=== PATIENT | female | born 2000 | race Caucasian/White ===

== ENCOUNTER 2021-03-13 00:42 | Outpatient (CLI) | payer MEDICAID, SELFPAY ==
--- NOTE | 2021-03-13 | DI.US_ITS ---
Exam(s) US OB 1ST TRIMESTER EXAM: US OB 1ST TRIMESTER CLINICAL HISTORY: ? SIZE AND DATES,N92.6 TECHNIQUE: Ultrasound performed using standard protocol. COMPARISON: No exams were available for comparison FINDINGS: Ob ultrasound was performed utilizing 1st trimester protocol. There is a single viable intrauterine gestation. [place]-rump length measurements are consistent with a gestational age 10 weeks 6 days and EDC of October 03, 2021. heart rate is 157 BPM. The trophoblastic tissue is unremarkable appearance. Ovaries are unremarkable as visualized. No free fluid in the cul-de-sac. IMPRESSION: DATA REPOSITORY:
== END 2021-03-13 01:02 ==
PROVIDERS: Visit Provider Family Medicine
DX: Z34.91 Encounter for supervision of normal pregnancy, unspecified, first trimester (principal); Z3A.10 10 weeks gestation of pregnancy
CPT/HCPCS: 76801

== ENCOUNTER 2021-06-16 00:32 | Outpatient (CLI) | payer MEDICAID, SELFPAY ==
--- NOTE | 2021-06-16 | DI.US_ITS ---
Exam(s) US OB 2-3 TRIMESTER EXAM: US OB 2-3 TRIMESTER CLINICAL HISTORY: SECOND TRIMESTER ,Z34.92. TECHNIQUE: Transabdominal obstetrical ultrasound was performed. COMPARISON: US US OB 1ST TRIMESTER from 03/13/2021 FINDINGS: There is a single viable intrauterine gestation with cardiac activity identified-140 bpm. Amniotic fluid: There is a normal amount of amniotic fluid. Placental location: The placenta is anterior grade 1,with no evidence of placenta previa.Distance fro m the tip of placenta to the internal cervical os is 9.5 cm ANATOMY: A 3 vessel umbilical cord is seen. A four-chamber cardiac view was obtained. Right and left ventricular outflow tracts were imaged. There are no obvious abnormalities of the spinal column evident. There is no obvious abnormal ity of the anterior abdominal wall. stomach and urinary bladder are identified and there is no evidence of hydronephrosis. No abnormalities of the upper lip region are identified. No evidence of choroid plexus cysts i n the brain. Dating parameters place this at approximately 25 weeks and 2 days gestational age. BPD measures 25 weeks and 2 days HC measures 25 weeks and 3 days AC measures 25 weeks and 3 days FL measures 25 weeks and 0 days Estimated weight is 791 gm-1 pound 12 ounces Fetus is at the 79th percentile on the Hadlock scale. IMPRESSION:: Single viable intrauterine gestation which is approximately 25 weeks and 2 days gestati onal age, implying an SOCORRO of September 27, 2021. There are no obvious anomalies evident on today's study. The placenta is anterior with no evidence of placenta previa. There is a normal amount of amniotic fluid. DATA REPOSITORY:
== END 2021-06-16 00:52 ==
PROVIDERS: PCP Family Medicine; Visit Provider Family Medicine
DX: Z34.92 Encounter for supervision of normal pregnancy, unspecified, second trimester (principal); Z3A.25 25 weeks gestation of pregnancy
CPT/HCPCS: 76805

== ENCOUNTER 2021-09-24 00:33 | Inpatient (IN) | payer MEDICAID, SELFPAY ==
[2021-09-24] VITALS (20 sets, daily range): BP systolic 104–133; BP diastolic 52–79; PULSE 86–113; RESP 17–22; TEMP 36.4–36.7; O2SAT 97–99
[2021-09-24 00:58] LABS: HCT 31.7 % (36.0-46.0); HGB 11.2 g/dL (11.2-15.7); MCHC 35.3 % (32.0-36.0); MCV 94 fL (80-95); MPV 10.7 fL (8.0-11.0); Platelet Count 170 10^3/uL (130-400); RBC 3.39 10^6/uL (3.93-5.22); RDW 12.2 % (11.7-14.6); WBC 15.14 10^3/uL (4.4-10.8)
[2021-09-24 03:04] LABS: Source Nasal/Nares
[2021-09-24 03:55] LABS: COVID-19 PCR Negative (Negative)
--- NOTE | 2021-09-24 05:21 | HPE_ITS ---
Date of service: 09/24/21 Time of Service: 04:30 Assessment and Plan Assessment and plan (1) : Status: Acute OB-HPI Labor/Delivery History of Present Illness Reason for Visit: Term labor Chief Complaint: Uterine Contractions. Comments: 38 09/05 - has been prodroming since 1 am 09/23 - latest cervical check 3 cm/30/- 2/vtx @ ~5 pm 09/23. No ROM, some mucousy show, good FM. No visual sx, garcia, abd pain. reating and taking fluids well. Good support from family/Mom History of Present Narrative: see pn flow sheet PFSH All Active Problems (Updated 09/24/21 @ 05:47 by Gino Argueta) (Acute) Medical History Anxiety Social History Smoking/Tobacco Use Status: Current-Occasional Tobacco Type: cigarettes Smoking risk assessment performed?: Yes Alcohol Intake: never Substance use type: does not use History History 2 1 Para 0 Hx # Term Pregnancies Multiple births Hx # Pregnancies Ectopic pregnancies AB induced Hx Number of Living Children AB spontaneous Meds Allergies and Home Medications Allergies Allergy/AdvReac Type Severity Reaction Status Date / Time Penicillins Allergy Unknown Unverified 09/24/21 01:18 Home Medications Medication Instructions Recorded Confirmed Type sertraline 50 mg tablet (Zoloft) 50 mg PO QDAY anxiety 09/24/21 09/24/21 History Exam Physical Exam Vital signs: Temp Pulse Resp BP Pulse Ox 36.4 C L 104 H 20 115/65 98 09/24/21 04:27 09/24/21 04:26 09/24/21 04:27 09/24/21 04:26 09/24/21 04:26 Narrative: post walk to she had nausea/vomiting spell and cervix checked - 9 cm/100/+1/VTX/Intact. AROM ~5 AM - scant ant lip remaining. Sig invol pushing and moving vtx quite well Detailed Labor and Delivery Exam Alvarez Score: Cervical Points Exam 0 1 2 3 Dilation Closed 1-2cm 3-4 cm 5-6cm Effacement 0-30% 40-50% 60-70% 80% Consistency Firm Medium Soft Station -3 -2 -1,0 +1,+2 Position Posterior Mid Anterior Comments: see above note interrupted by precip delivery - see del note Results Abnormal Lab Findings: Abnormal Labs 09/24/21 00:48 WBC 15.14 H RBC 3.39 L Hct 31.7 L Risk Assessment Risk for Shoulder Dystocia Delivery Plan @ 40 wks: with usual awareness of her low risk for SD Risk for Post- Hemorrhage At Risk?: No Risks Reviewed Risks Reviewed Upon Admission: Yes
[2021-09-24] MEDS: Oxytocin 10 UNITS/ML VIAL IM (05:33)
--- NOTE | 2021-09-24 05:41 | NUR.NOTE ---
Nursing Note:0525 Pt delivered vaginally. Bilateral labial tears, no repair. FFat U,
--- NOTE | 2021-09-24 05:42 | NUR.NOTE ---
Nursing Note:0525 Pt delivered vaginally using nitrous. No repair. Bilateral labial tears. Delayed cord cutting. PLacenta delivered with trailing membranes intact per MD. Pitocin 10 units IM given prior to delivery per MD.
--- NOTE | 2021-09-24 05:49 | W.OBDELIVERY ---
Date of service: 09/24/21 Time of Service: 04:49 OB Labor/ Delivery Information Baby A Delivery Note: Term presented in active labor. FHT cat 1 throughout. Excellent position changes, family support and Nitrous use allowed her to progress to complete. AROM ~5 AM - strong pushes in lithotomy. when shifted to squat with bar she crowned precipitously after a single push. OA. Transverse shoulders with only maternal effort - no maneuvers. Spont resp and to maternal abd. 8/9 for color. HR > 100 at . AF clear Scant labial skid matthews - no repair warranted. perineum and rectum examined and intact. Spont intact placenta with central cord insertion Firm fundus @ umb. Pit IM given. Nell tolerated delivery quite well and was bonding with cont skin to skin for >30 min post delivery Providers Doctor: Gino Argueta Nurse: Evelyn Staley Nurse: Ashley Donaldson Labor/Delivery Information Number of Babies in Womb: 1 Steroids Given: None Reason Steroids Not Administered: N/A Group Beta Strep: Negative Antibiotics Administered: No Medication in Delivery: Nitrous Shoulder Dystocia: No Stages of Labor Onset of Labor Date: 09/23/21 Onset of Labor Time: 21:30 Complete Dilatation Date: 09/24/21 Complete Dilatation Time: 04:55 Labor - Stage 1 Duration: 24 hours and 0 minutes ROM Baby A: 09/24/21 ROM Baby A: 04:58 Infant Delivery Date-Baby A: 09/24/21 Placenta Delivery Date-Baby A: 09/24/21 Placenta Delivery Time-Baby A: 05:34 Placenta Cultured: No Placenta Status: Delivered Baby A Infant Gender: Female Gestational Status: Early Term (37-38.6 wks) Gestational Age in Weeks/Days: 38 Weeks and 5 Days Score-1 Minute Interval(Baby A) Heart Rate-1 minute: 100 BPM or Greater Respiratory Effort- 1 minute: Spontaneous/Strong Cry Muscle Tone-1 minute: Active Movement Reflex Response-1 minute: Prompt Response Color-1 minute: Pallor or Cyanosis Total Score-1 minute: 8 Score-5 Minute Interval(Baby A) Heart Rate- 5 minute: 100 BPM or Greater Respiratory Effort-5 minute: Spontaneous/Strong Cry Muscle Tone-5 minute: Active Movement Reflex Response-5 minute: Prompt Response Color-5 minute: Bluish Hands or Feet Total Score- 5 minute: 9 Shoulder Dystocia Verify No Fundal Pressure Applied Fundal Pressure: No Pressure Applied Arm Under Sympisis Note: shoulders were transverse. No maneuvers, no dystocia
[2021-09-24] MEDS: Docusate Sodium 100 MG CAP PO (06:38)
[2021-09-24] MEDS: Ibuprofen 600 MG TAB PO ×3 (06:39→19:17)
[2021-09-24] MEDS: Acetaminophen 325 MG TAB 650 MG PO ×3 (06:40→19:17)
[2021-09-24] MEDS: Sertraline 50 MG TAB PO (09:13)
[2021-09-24] MEDS: Prenatal Multivitamin w/CA,FE TAB 1 TAB PO (09:13)
[2021-09-25 07:15] VITALS: BP 107/68; PULSE 92; RESP 20; TEMP 36.6
[2021-09-25 07:33] LABS: HCT 28.2 % (36.0-46.0); MCH 33.3 pg (27.0-33.0); MCHC 35.5 % (32.0-36.0); MCV 94 fL (80-95); Platelet Count 155 10^3/uL (130-400); RDW 12.5 % (11.7-14.6); WBC 10.44 10^3/uL (4.4-10.8)
[2021-09-25] MEDS: Sertraline 50 MG TAB PO (08:16)
[2021-09-25] MEDS: Prenatal Multivitamin w/CA,FE TAB 1 TAB PO (08:16)
[2021-09-25 11:49] VITALS: BP 117/71; PULSE 88; RESP 18; TEMP 36.7; O2SAT 97
--- NOTE | 2021-09-25 13:33 | W.PM.OBDISCH ---
Date of service: 09/25/21 Time of Service: 12:33 DS: Diagnosis Discharge Diagnosis (1) : Status: Acute Asessment and Plan: Nell is a 21y [id number] w Rh+ GBS+ sp after uncomplicated and labor. Normal post course. Pain well controlled with NSAIDs, lochia minimal, +BM, voiding well. She has not gotten a good latch so is pumping as well as supplementing, but discussed continuing to put baby to breast and work on latch if she wants to nurse. DC home today with follow up in clinic on Tuesday. Discharge Plan Disposition Patient Disposition: HOME Condition: Good Discharge Details Reason For Visit: Term labor Admit Date/Time: 09/24/21 00:33 Admit Provider: Gino Argueta Attending Provider: Gino Argueta Primary Care Provider: Sherlyn Ling Home Meds and New Rx's Prescriptions: No Action sertraline [Zoloft] 50 mg Tablet 50 mg PO QDAY Discharge Instructions Stand Alone Forms: BC Post Vaginal Deliver Activity:: Activity as Tolerated Equipment/Supplies:: breast pump Diet:: As Tolerated Discharge Orders Discharge Orders: Discharge Order (Routine); Ordered 09/25/21 Ordered By: Ramiro Noel OB:DS Summary Summary Vaginal Delivery Method: Spontaneaous Episiotomy Description: None Laceration Description: None Laceration Extension: N/A complications OB DS: none Time spent discussing smoking cessation with patient: 3 to 10 minutes Contraception Discussed Contraception Discussed: Yes, Infant Gender-Baby A: Female weight: 3625 g Disposition of Baby A: Home Status at Discharge Functional status at discharge: independent ambulation Overall status at discharge: patient is not back to baseline Mental Status: mental status grossly normal Speech and Movement: speech and movement normal Mood: congruent mood Affect: normal affect Time Spent with Patient providing and/or coordinating discharge services: Less than 30 minutes Hospital Course See above Exam Physical Exam Vital signs: Temp Pulse Resp BP Pulse Ox 36.7 C 88 18 117/71 97 09/25/21 11:49 09/25/21 11:49 09/25/21 11:49 09/25/21 11:49 09/25/21 11:49 Vital Signs Reviewed: Yes Constitutional Constitutional: no acute distress Respiratory Exam Respiratory Exam: Normal Cardiovascular Exam Cardiovascular Exam: Normal Fundal Exam Fundus: Below Umbilicus Extremities Exam Extremity Exam: Normal Neurological Exam Neurological Exam: Normal Psychiatric Exam Psychiatric Exam: Normal PFSH All Active Problems (Acute) Medical History Anxiety Social History Smoking/Tobacco Use Status: Current-Occasional Tobacco Type: cigarettes Smoking risk assessment performed?: Yes Alcohol Intake: never Substance use type: does not use History History 1 Para 0 Hx # Term Pregnancies Multiple births Hx # Pregnancies Ectopic pregnancies AB induced Hx Number of Living Children AB spontaneous DS: Data Vitals/I&O Vitals and I&O: Vital Signs Temperature 36.7 C 09/25/21 11:49 Pulse 88 09/25/21 11:49 Pulse Rhythm Regular 09/25/21 07:15 Respiratory Rate 18 09/25/21 11:49 Respiratory Depth Normal 09/24/21 07:15 Blood Pressure 117/71 09/25/21 11:49 Blood Pressure Mean 86 09/25/21 11:49 Pulse Oximetry 97 09/25/21 11:49 Oxygen Delivery Method Room Air 09/24/21 00:33 Oxygen Flow Rate 0 09/24/21 00:33 Pain Level 2 09/25/21 11:49 Intake & Output 09/24/21 09/25/21 09/25/21 23:59 11:59 23:59 Output Total 800 / 950 Balance -800 / -950 Output: Urine 800 / 950 Data Completed and Pending Labs on day of discharge: Labs from last 24 hours 09/25/21 07:00 WBC 10.44 RBC 3.00 L Hgb 10.0 L Hct 28.2 L MCV 94 MCH 33.3 H MCHC 35.5 RDW 12.5 Plt Count 155 MPV 11.0
--- NOTE | 2021-10-05 17:45 | LC_ITS ---
Date of service: 10/05/21 Time of Service: 14:25 Note Note: D - Nell and Keisha have a loaner breast pump return date 10/09 and anticipating transportation for the pump from [facility] tomorrow am. A - Phoned and spoke /c Nell. R - Feeding is going well, has their own pump from insurance, plans to return the pump by the end of the week, bringing it to [facility]. Subjective Background Feeding Preference: Some Feeding Preference Comments: pump and bottle feed Pump Availability: Has Pump Delivery Hx Type of Delivery: Vaginal Infant Gender: Female Gestational Status: Early Term (37-38.6 wks) Vacuum: N/A Forceps: N/A Shoulder Dystocia: No Score 1 Minute Heart Rate-1 minute: 100 BPM or Greater Respiratory Effort- 1 minute: Spontaneous/Strong Cry Muscle Tone-1 minute: Active Movement Reflex Response-1 minute: Prompt Response Color-1 minute: Pallor or Cyanosis Total Score-1 minute: 8 Score 5 Minute Heart Rate- 5 minute: 100 BPM or Greater Respiratory Effort-5 minute: Spontaneous/Strong Cry Muscle Tone-5 minute: Active Movement Reflex Response-5 minute: Prompt Response Color-5 minute: Bluish Hands or Feet Total Score- 5 minute: 9 Results Infant Weight/I&O Weight Change: weight 3625 g Weight 200 g
== END 2021-09-25 15:00 | disposition home or self-care (01) | DRG 807 ==
PROVIDERS: Admitting Provider Family Medicine; PCP Family Medicine; Visit Provider Family Medicine
DX: O99.824 Streptococcus B carrier state complicating childbirth (principal); Z37.0 Single live birth; Z3A.38 38 weeks gestation of pregnancy; O99.344 Other mental disorders complicating childbirth; O99.334 Smoking (tobacco) complicating childbirth; F41.9 Anxiety disorder, unspecified; F17.210 Nicotine dependence, cigarettes, uncomplicated
CPT/HCPCS: 36415; 85027; 86850; 86900; 86901; 87635; J2590; J3490